=== PATIENT | male | born 1995 | race Caucasian/White ===

== ENCOUNTER 2016-10-14 20:38 | Emergency (ER) | payer OTHER ==
[2016-10-14 20:50] VITALS: BP 138/85; TEMP 97.9
[2016-10-14] MEDS ORDERED: NS 1,000 ML IV ONE ×3 (20:51→20:54)
[2016-10-14] MEDS ORDERED: ONDANSETRON 4 MG/2 ML VIAL IVP ONE (20:51)
[2016-10-14] MEDS ORDERED: FAMOTIDINE 20 MG in NS 100 ML IV ONE (20:54)
[2016-10-14] MEDS ORDERED: PROMETHAZINE HCL 25 MG/ML VIAL IVP ONE (20:54)
[2016-10-14 21:05] LABS: % IMMATURE GRANULYOCYTES 0.3 % (0.0-1.1); ABSOLUTE IMMATURE GRANULOCYTES 0.05 10^3/uL (0.00-0.10); ADD DIFF? NO; ADD MORPH? NO; ADD SCAN? NO; ATYPICAL LYMPHOCYTE FLAG 0 (0-99); FRAGMENT RBC FLAG 0 (0-99); HEMATOCRIT 48.3 % (40.0-51.0); HEMOGLOBIN 17.7 g/dL (13.7-17.5); LEFT SHIFT FLG 0 (0-99); LIPEMIA HEMOLYSIS FLAG 90 (0-99); MEAN CELL HEMOGLOBIN 31.4 pg (27.9-34.1); MEAN CELL HEMOGLOBIN CONCENTR. 36.6 g/dL (32.4-36.7); MEAN CELL VOLUME 85.8 fL (81.5-99.8); MEAN PLATELET VOLUME 8.6 fL (8.7-11.7); PLATELET CLUMPS FLAG 0 (0-99); PLATELET COUNT 356 10^3/uL (150-400); RED BLOOD CELL COUNT 5.63 10^6/uL (4.40-6.38); RED CELL DISTRIBUTION WIDTH 12.4 % (11.5-15.2)
[2016-10-14 21:25] LABS: ALANINE AMINOTRANSFERASE 30 IU/L (21-72); ALBUMIN 4.8 g/dL (3.5-5.0); ALKALINE PHOSPHATASE 111 IU/L (38-126); ANION GAP 17 mEq/L (8-16); ASPARTATE AMINOTRANSFERASE 19 IU/L (17-59); BILIRUBIN,TOTAL 1.2 mg/dL (0.1-1.4); BILIRUBIN-CONJUGATED 0.2 mg/dL (0.0-0.5); CALCIUM 10.4 mg/dL (8.5-10.4); CARBON DIOXIDE 23 mEq/l (22-31); CHLORIDE 101 mEq/L (97-110); GLOMERULAR FILTRATION RATE > 60; GLUCOSE 91 mg/dL (70-100); SODIUM 141 mEq/L (134-144); TOTAL PROTEIN 7.9 g/dL (6.3-8.2)
--- NOTE | 2016-10-14 21:41 | UCPHY ---
H & P Patient Type: New HPI/ROS: HPI Vomiting. 21-year-old male by private vehicle with his girlfriend. This patient reports that he was drinking a combination of vodka and mixed drinks last night. He reports that today he has been vomiting for most the day and unable to keep fluids or solids down. He describes having some epigastric discomfort in association with gagging and vomiting only. He has not had any diarrhea. Last bowel movement was yesterday. No bloody or melenic stool. He describes this is normal. No urinary complaints. Last meal was last night. No prior abdominal surgical history. ROS: Constitutional: No fever, no chills. No weakness. Respiratory: No cough. No shortness of breath. Cardiac: No chest pain, no palpitations. Gastrointestinal: As above. Genitourinary: No hematuria. No dysuria or increased frequency with urination. Musculoskeletal: No back pain. No neck pain. No myalgias or arthralgias. Skin: No rashes. Neurological: No headache. No focal weakness or altered sensation. Past medical history: None. Social history: Here with his girlfriend. Physical Exam: General Appearance: Alert, no distress. This patient is responding to questions appropriately and in full sentences. This patient appears well- hydrated and well-nourished. Eyes: Pupils equal and round no pallor or injection. No lid edema, erythema or injection. Respiratory: There are no retractions, lungs are clear to auscultation with good air movement bilaterally. Cardiovascular: Regular rate and rhythm. Tachycardia. No murmur. Gastrointestinal: Abdomen is soft and nontender, no masses, bowel sounds normal. No focal tenderness at McBurney's point. No [place] sign. Neurological: Motor sensory function is grossly intact. Cranial nerves are normal. Gait is normal. Skin: Warm and dry, no rashes. Musculoskeletal: Neck is supple and nontender. Extremities are symmetrical. All joints range without pain or impingement. Psychiatric: No agitation. No depression. Database: EKG: Imaging: Procedures: Emergency department course: IV placed. He was placed on a monitor. He was started on IV normal saline with 1-2 L to be given over the next 1-2 hours. He was initially given 20 mg of IV Pepcid, 4 mg of IV Zofran 6.25 mg of IV Phenergan. 9:40 p.m., patient re-evaluated. Resting comfortably at this time. He states that he feels better. Repeat abdominal exam is soft, nontender nondistended. Will provide and oral fluid challenge shortly. 10:10 p.m., patient re-evaluated. He is tolerating oral fluids without issue. He states he feels much better. Repeat abdominal exam he is soft, nontender nondistended. He feels comfortable going home and I feel he is safe for discharge. Follow-up and return to emergency department precautions have been discussed with him. All of his questions were answered. He was discharged in good condition with his girlfriend who is driving. Differential Diagnosis: The differential diagnosis on this patient includes but is not limited to alcohol induced gastritis, pancreatitis. Cholecystitis, appendicitis, bowel obstruction, other surgical etiology unlikely. This represents a partial list of diagnoses considered. These considerations are based on history, physical exam, past history, reassessment and diagnostic testing. Smoking Status: Never smoked Constitutional: Initial Vital Signs Temperature (C) 36.6 C 10/14/16 20:48 Heart Rate 120 H 10/14/16 20:48 Respiratory Rate 18 10/14/16 20:48 Blood Pressure 138/85 H 10/14/16 20:48 O2 Sat (%) 97 10/14/16 20:48 O2 Delivery Mode Room Air Allergies/Adverse Reactions: No Known Allergies Allergy (Unverified 10/14/16 20:48) Home Medications: Medication Instructions Recorded NK [No Known Home Meds] 10/14/16 Medical Decision Making - Data Points Laboratory Results: Laboratory Results 10/14/16 21:00 10/14/16 21:00 10/14/16 21:00 WBC 15.05 H 10^3/uL (3.80-9.50) RBC 5.63 10^6/uL (4.40-6.38) Hgb 17.7 H g/dL (13.7-17.5) Hct 48.3 % (40.0-51.0) MCV 85.8 fL (81.5-99.8) MCH 31.4 pg (27.9-34.1) MCHC 36.6 g/dL (32.4-36.7) RDW 12.4 % (11.5-15.2) Plt Count 356 10^3/uL (150-400) MPV 8.6 L fL (8.7-11.7) Neut % (Auto) 83.2 H % (39.3-74.2) Lymph % (Auto) 5.8 L % (15.0-45.0) Toole % (Auto) 10.4 % (4.5-13.0) Eos % (Auto) 0.0 L % (0.6-7.6) Baso % (Auto) 0.3 % (0.3-1.7) Nucleat RBC Rel Count 0.0 % (0.0-0.2) Absolute Neuts (auto) 12.51 H 10^3/uL (1.70-6.50) Absolute Lymphs (auto) 0.88 L 10^3/uL (1.00-3.00) Absolute Monos (auto) 1.57 H 10^3/uL (0.30-0.80) Absolute Eos (auto) 0.00 L 10^3/uL (0.03-0.40) Absolute Basos (auto) 0.04 10^3/uL (0.02-0.10) Absolute Nucleated RBC 0.00 10^3/uL (0-0.01) Immature Gran % 0.3 % (0.0-1.1) Immature Gran # 0.05 10^3/uL (0.00-0.10) Sodium 141 mEq/L (134-144) Potassium 4.0 mEq/L (3.5-5.2) Chloride 101 mEq/L (97-110) Carbon Dioxide 23 mEq/l (22-31) Anion Gap 17 mEq/L (8-16) BUN 16 mg/dL (7-23) Creatinine 1.0 mg/dL (0.7-1.3) Estimated GFR > 60 Glucose 91 mg/dL (70-100) Calcium 10.4 mg/dL (8.5-10.4) Total Bilirubin 1.2 mg/dL (0.1-1.4) Conjugated Bilirubin 0.2 mg/dL (0.0-0.5) Unconjugated Bilirubin 1.0 mg/dL (0.0-1.1) AST 19 IU/L (17-59) ALT 30 IU/L (21-72) Alkaline Phosphatase 111 IU/L (38-126) Total Protein 7.9 g/dL (6.3-8.2) Albumin 4.8 g/dL (3.5-5.0) Lipase 312.0 H IU/L (23-300) Medications Given: Discontinued Medications Sodium Chloride (Ns) 1,000 mls @ 0 mls/hr IV ONCE ONE PRN Reason: Wide Open Stop: 10/14/16 20:55 Last Admin: 10/14/16 21:00 Dose: 1,000 mls Famotidine 20 mg/ Sodium (Chloride) 102 mls @ 408 mls/hr IV EDNOW ONE Stop: 10/14/16 21:08 Last Admin: 10/14/16 21:00 Dose: 102 mls Ondansetron HCl (Zofran) 4 mg IVP EDNOW ONE Stop: 10/14/16 20:52 Last Admin: 10/14/16 20:58 Dose: 4 mg Departure - Departure Disposition: Home, Routine, Self-Care Clinical Impression: Vomiting Condition: Good Instructions: Acute Nausea and Vomiting (ED), Ondansetron (By mouth) Additional Instructions: Read and follow provided instructions. Follow-up with your primary care physician in 1-2 days for re-evaluation as needed. Do not abuse alcohol. Take medication as prescribed. Return to the emergency department for worsening abdominal pain, vomiting and inability to keep fluids down despite medications or other serious concerns. Referrals: NONE *PRIMARY CARE P,. [Primary Care Provider] - As per Instructions - PQRS PQRS Measurement: Not applicable.
[2016-10-14] MEDS ORDERED: ONDANSETRON 4MG PREPACK#2 BTL TAKEHOME ONE (21:42)
[2016-10-14 22:25] VITALS: PULSE 108; RESP 16; O2SAT 96
== END 2016-10-14 22:25 | disposition home or self-care (01) ==
LOC: CED 20:38
DX: R11.10 Vomiting, unspecified (principal); R10.13 Epigastric pain
CPT/HCPCS: 80048-PO; 80076-PO; 83690-PO; 85025-PO; 96361-PO; 96365-PO; 96374-PO; 96375-PO; 99203-PO; G0463-PO; J2405